=== PATIENT | female | born 2000 | race American Indian/Alaskan Native ===

== ENCOUNTER 2022-03-01 07:08 | Emergency (ER) | payer BC ==
[2022-03-01] MEDS ORDERED: charcoal activated SOLUTION 25 GM/120 ML PO ONE (08:34)
[2022-03-01] MEDS ORDERED: ONDANSETRON 4 MG/2 ML INJ IV ONE (08:35)
--- NOTE | 2022-03-01 08:52 | Emergency Department Report ---
HPI <EVONNE ZAVALA - Last Filed: 03/01/22 22:11> - [facility] HPI: Room 19 The patient is a 21-year-old female present with a chief complaint of suicidal ideation/overdose. Unfortunately the patient found out her brother was murdered earlier this morning. In her grief the patient overdosed on 10-20 ibuprofen 800 mg and consume alcohol in an attempt to kill her self. Patient denies any other ingestions. The patient is emotionally distraught but states she feels physically fine. <LUIS ALFREDO VARGAS - Last Filed: 03/02/22 11:32> - General Chief Complaint: Overdose Time Seen by Provider: 03/01/22 08:28 ED Past Medical Hx <EVONNE ZAVALA - Last Filed: 03/01/22 22:11> - Past Medical History Previous Medical History?: Yes Hx Psychiatric Treatment: Yes (Overdose, anxiety, depression) - Surgical History Past Surgical History?: No - Family History Family history: no significant - Social History Smoking Status: Never Smoker Substance Use Type: None <LUIS ALFREDO VARGAS - Last Filed: 03/02/22 11:32> - Medications Home Medications: Home Medications Medication Instructions Recorded Confirmed Last Taken Type Escitalopram Oxalate [Lexapro] 5 mg PO QDAY #30 03/02/22 Unknown Rx Trazodone HCl 50 mg PO QHS #30 03/02/22 Unknown Rx hydrOXYzine PAMOATE [Vistaril] 25 mg PO BID PRN #60 capsule 03/02/22 Unknown Rx ED Review of Systems ROS: Stated complaint: OVERDOSE IBUPROFEN 800 Other details as noted in HPI <EVONNE ZAVALA - Last Filed: 03/01/22 22:11> ROS: Stated complaint: OVERDOSE IBUPROFEN 800 Other details as noted in HPI Constitutional: no symptoms reported Eyes: denies: eye pain ENT: denies: throat pain Respiratory: no symptoms reported Cardiovascular: denies: chest pain Endocrine: no symptoms reported Gastrointestinal: denies: abdominal pain Genitourinary: denies: dysuria Musculoskeletal: denies: back pain Neurological: denies: headache Psychiatric: suicidal thoughts <LUIS ALFREDO VARGAS - Last Filed: 03/02/22 11:32> Physical Exam - Physical Exam Vital Signs: Vital Signs 03/01/22 03/01/2222 07:21 07:53 08:00 Temperature 97.6 F Pulse Rate 73 103 H 64 Respiratory 20 18 17 Rate Blood Pressure Blood Pressure 127/83 [Right] O2 Sat by Pulse 99 98 Oximetry 03/01/22 03/01/22 03/01/22 08:15 08:30 08:38 Temperature Pulse Rate 82 71 Respiratory 19 16 18 Rate Blood Pressure 121/64 121/64 Blood Pressure [Right] O2 Sat by Pulse 98 98 98 Oximetry 03/01/22 03/01/22 03/01/22 08:45 09:00 09:15 Temperature Pulse Rate 86 78 68 Respiratory 17 13 14 Rate Blood Pressure 113/56 108/61 121/59 Blood Pressure [Right] O2 Sat by Pulse 98 98 99 Oximetry 03/01/22 03/01/22 03/01/22 09:30 09:45 10:00 Temperature Pulse Rate 76 86 82 Respiratory 20 22 21 Rate Blood Pressure 116/53 117/63 120/44 Blood Pressure [Right] O2 Sat by Pulse 99 98 99 Oximetry 03/01/22 03/01/22 03/01/22 10:15 10:30 10:45 Temperature Pulse Rate 79 71 84 Respiratory 23 26 H 20 Rate Blood Pressure 126/54 106/38 116/52 Blood Pressure [Right] O2 Sat by Pulse 97 96 98 Oximetry 03/01/22 03/01/22 03/01/22 11:00 11:15 11:30 Temperature Pulse Rate 96 H 89 96 H Respiratory 22 17 19 Rate Blood Pressure 109/61 119/60 122/52 Blood Pressure [Right] O2 Sat by Pulse 97 100 98 Oximetry 03/01/22 03/01/22 03/01/22 11:46 12:00 12:16 Temperature Pulse Rate 87 109 H 78 Respiratory 18 21 22 Rate Blood Pressure 122/52 122/52 122/52 Blood Pressure [Right] O2 Sat by Pulse Oximetry 03/01/22 03/01/22 03/01/22 12:30 12:46 13:00 Temperature Pulse Rate 71 71 74 Respiratory 17 20 16 Rate Blood Pressure 122/52 122/52 122/52 Blood Pressure [Right] O2 Sat by Pulse Oximetry 03/01/22 03/01/22 03/01/22 13:16 13:30 13:46 Temperature Pulse Rate 76 82 68 Respiratory 21 17 15 Rate Blood Pressure 122/52 122/52 122/52 Blood Pressure [Right] O2 Sat by Pulse Oximetry 03/01/22 03/01/22 03/01/22 14:00 14:16 14:30 Temperature Pulse Rate 80 77 74 Respiratory 11 L 21 21 Rate Blood Pressure 122/52 122/52 116/55 Blood Pressure [Right] O2 Sat by Pulse 91 Oximetry 03/01/22 03/01/22 03/01/22 14:45 15:00 15:15 Temperature Pulse Rate 71 65 65 Respiratory 21 14 15 Rate Blood Pressure 105/51 120/61 119/58 Blood Pressure [Right] O2 Sat by Pulse 93 96 97 Oximetry 03/01/22 03/01/22 03/01/22 15:30 15:45 16:00 Temperature Pulse Rate 64 64 69 Respiratory 15 18 17 Rate Blood Pressure 116/50 115/57 122/61 Blood Pressure [Right] O2 Sat by Pulse 97 97 97 Oximetry 03/01/22 03/01/22 03/01/22 16:15 16:30 16:45 Temperature Pulse Rate 69 56 L 77 Respiratory 18 16 22 Rate Blood Pressure 133/58 115/66 125/61 Blood Pressure [Right] O2 Sat by Pulse 96 96 95 Oximetry 03/01/22 03/01/22 03/01/22 17:00 17:15 20:20 Temperature Pulse Rate 69 64 Respiratory 15 14 Rate Blood Pressure 123/68 125/65 Blood Pressure [Right] O2 Sat by Pulse 99 100 100 Oximetry <EVONNE ZAVALA - Last Filed: 03/01/22 22:11> - Physical Exam Vital Signs: Vital Signs 03/01/22 07:21 Temperature 97.6 F Pulse Rate 73 Respiratory 20 Rate Blood Pressure 127/83 [Right] O2 Sat by Pulse 99 Oximetry Physical Exam: GENERAL: The patient is well-developed well-nourished female lying on stretcher tearful. [] HEENT: Normocephalic. Atraumatic. Extraocular motions are intact. Patient has moist mucous membranes. NECK: Supple. Trachea midline CHEST/LUNGS: Clear to auscultation. There is no respiratory distress noted. HEART/CARDIOVASCULAR: Regular. There is no tachycardia. There is no gallop rub or murmur. ABDOMEN: Abdomen is soft, nontender. Patient has normal bowel sounds. There is no abdominal distention. SKIN: There is no rash. There is no edema. There is no diaphoresis. NEURO: The patient is awake, alert, and oriented. The patient is cooperative. The patient has no focal neurologic deficits. The patient has normal speech. GCS 15 MUSCULOSKELETAL: There is no evidence of acute injury. <LUIS ALFREDO VARGAS - Last Filed: 03/02/22 11:32> ED Course Vital Signs 03/01/22 03/01/22 03/01/22 07:21 07:53 08:00 Temperature 97.6 F Pulse Rate 73 103 H 64 Respiratory 20 18 17 Rate Blood Pressure Blood Pressure 127/83 [Right] O2 Sat by Pulse 99 98 Oximetry 03/01/22 03/01/22 03/01/22 08:15 08:30 08:38 Temperature Pulse Rate 82 71 Respiratory 19 16 18 Rate Blood Pressure 121/64 121/64 Blood Pressure [Right] O2 Sat by Pulse 98 98 98 Oximetry 03/01/22 03/01/22 03/01/22 08:45 09:00 09:15 Temperature Pulse Rate 86 78 68 Respiratory 17 13 14 Rate Blood Pressure 113/56 108/61 121/59 Blood Pressure [Right] O2 Sat by Pulse 98 98 99 Oximetry 03/01/22 03/01/22 03/01/22 09:30 09:45 10:00 Temperature Pulse Rate 76 86 82 Respiratory 20 22 21 Rate Blood Pressure 116/53 117/63 120/44 Blood Pressure [Right] O2 Sat by Pulse 99 98 99 Oximetry 03/01/22 03/01/22 03/01/22 10:15 10:30 10:45 Temperature Pulse Rate 79 71 84 Respiratory 23 26 H 20 Rate Blood Pressure 126/54 106/38 116/52 Blood Pressure [Right] O2 Sat by Pulse 97 96 98 Oximetry 03/01/22 03/01/22 03/01/22 11:00 11:15 11:30 Temperature Pulse Rate 96 H 89 96 H Respiratory 22 17 19 Rate Blood Pressure 109/61 119/60 122/52 Blood Pressure [Right] O2 Sat by Pulse 97 100 98 Oximetry 03/01/22 03/01/22 03/01/22 11:46 12:00 12:16 Temperature Pulse Rate 87 109 H 78 Respiratory 18 21 22 Rate Blood Pressure 122/52 122/52 122/52 Blood Pressure [Right] O2 Sat by Pulse Oximetry 03/01/22 03/01/22 03/01/22 12:30 12:46 13:00 Temperature Pulse Rate 71 71 74 Respiratory 17 20 16 Rate Blood Pressure 122/52 122/52 122/52 Blood Pressure [Right] O2 Sat by Pulse Oximetry 03/01/22 03/01/22 03/01/22 13:16 13:30 13:46 Temperature Pulse Rate 76 82 68 Respiratory 21 17 15 Rate Blood Pressure 122/52 122/52 122/52 Blood Pressure [Right] O2 Sat by Pulse Oximetry 03/01/22 03/01/22 03/01/22 14:00 14:16 14:30 Temperature Pulse Rate 80 77 74 Respiratory 11 L 21 21 Rate Blood Pressure 122/52 122/52 116/55 Blood Pressure [Right] O2 Sat by Pulse 91 Oximetry 03/01/22 03/01/22 03/01/22 14:45 15:00 15:15 Temperature Pulse Rate 71 65 65 Respiratory 21 14 15 Rate Blood Pressure 105/51 120/61 119/58 Blood Pressure [Right] O2 Sat by Pulse 93 96 97 Oximetry 03/01/22 03/01/22 03/01/22 15:30 15:45 16:00 Temperature Pulse Rate 64 64 69 Respiratory 15 18 17 Rate Blood Pressure 116/50 115/57 122/61 Blood Pressure [Right] O2 Sat by Pulse 97 97 97 Oximetry 03/01/22 03/01/22 03/01/22 16:15 16:30 16:45 Temperature Pulse Rate 69 56 L 77 Respiratory 18 16 22 Rate Blood Pressure 133/58 115/66 125/61 Blood Pressure [Right] O2 Sat by Pulse 96 96 95 Oximetry 03/01/22 03/01/22 03/01/22 17:00 17:15 20:20 Temperature Pulse Rate 69 64 Respiratory 15 14 Rate Blood Pressure 123/68 125/65 Blood Pressure [Right] O2 Sat by Pulse 99 100 100 Oximetry - Reevaluation(s) Reevaluation #1: 03/01/22 22:11 pt is medically cleared. Repeat labs are unremarkable, UA negative for infection, uds negative. Covid test ordered and pending collection. <EVONNE ZAVALA - Last Filed: 03/01/22 22:11> Vital Signs 03/01/22 07:21 Temperature 97.6 F Pulse Rate 73 Respiratory 20 Rate Blood Pressure 127/83 [Right] O2 Sat by Pulse 99 Oximetry - Consultations Consultation #1: 03/01/22 08:52 Poison control called 03/01/22 09:04 Case discussed with Robbin-recommends checking CK. Recommends rechecking acetaminophen and aspirin level 2 hours in. States the patient remains asy mptomatic after 6 hours of observation recommend repeating H&H, CMP and CK. Patient medically cleared for psych if she remains asymptomatic with normal values <LUIS ALFREDO VARGAS - Last Filed: 03/02/22 11:32> ED Medical Decision Making - Lab Data Result diagrams: 03/01/22 14:04 03/01/22 14:04 <EVONNE ZAVALA - Last Filed: 03/01/22 22:11> - Lab Data Result diagrams: 03/01/22 14:04 03/01/22 14:04 - Differential Diagnosis Suicidal ideation, grief reaction, intentional overdose <LIUS ALFREDO VARGAS - Last Filed: 03/02/22 11:32> Critical care attestation.: If time is entered above; I have spent that time in minutes in the direct care of this critically ill patient, excluding procedure time. <EVONNE ZAVALA - Last Filed: 03/01/22 22:11> Critical care attestation.: If time is entered above; I have spent that time in minutes in the direct care of this critically ill patient, excluding procedure time. <LUIS ALFREDO VARGAS - Last Filed: 03/02/22 11:32> ED Disposition <EVONNE ZAVALA - Last Filed: 03/01/22 22:11> Is pt being admited?: No Does the pt Need Aspirin: No <LUIS ALFREDO VARGAS - Last Filed: 03/02/22 11:32> Clinical Impression: Suicidal ideation, Grief reaction, Ibuprofen overdose Disposition: 01 HOME / SELF CARE / HOMELESS Condition: Stable Instructions: Persistent Depressive Disorder, Adult, Suicidal Feelings: How to Help Yourself Additional Instructions: OUTPATIENT MENTAL HEALTH RESOURCES [facility], [facility] Donna Wood MD: [address] [place] [address], [address] [place] [address] [place] [address] [facility]: [facility] [address] [place] [address] [place], [place] [id number] [phone] [facility]: [facility] Healthcare: [address] [facility] [address] [place] [address] [facility] [address] [facility]: Addy Borjas MD: [address] [facility] [address] [facility] [address] [facility]: [address] [facility] [place], [place] [address] [phone] [place] CRISIS AND ACCESS LINE: Professional and Agency Contacts To help Resolve Crises (08/02) [place] Crisis Line: Suicide Prevention Line: Crisis Text Line: Text START to 230916 Emergency: 911 Outpatient [facility] Behavioral Health Resources: [facility]: [facility] [address] [place], [place] [address] [facility] [address] [place] [address] Wednesday thru Wednesday - 8am - 5pm Call to schedule an assessment for mental health and substance abuse programs [facility]3] [facility] Address: [address] [place], [place] [address]Wednesday thru Wednesday- 7am-2pm [facility] Address: [address] [place], [place] [address]Wednesday thru Wednesday: 8:30AM-5PM Prescriptions: Escitalopram Oxalate [Lexapro] 5 mg PO QDAY #30 Trazodone HCl 50 mg PO QHS #30 hydrOXYzine PAMOATE [Vistaril] 25 mg PO BID PRN #60 capsule PRN Reason: Anxiety Referrals: VICTORINO HURST MD [Primary Care Provider] - 3-5 Days
[2022-03-01 09:28] LABS: BUN/Creatinine Ratio 13; Blood Urea Nitrogen 9 mg/dL (7-17); Hemolysis Index 7
--- NOTE | 2022-03-01 09:34 | Consultation ---
History of Present Illness - Reason for Consult Consult date: 03/01/22 Reason for consult: suicide attempt - History of Present Psychiatric Illness The patient was seen today. Her brother is at bedside. The patient gives me permission to speak in front of him. The patient appears sad. She says she took a handful of ibuprofen in an attempt to end her life after she got new that her younger brother was murdered this morning. The patient says she is very depressed. She still expresses feeling hopeless. She says "he was my biggest cheerleader." The patient states she has attempted suicide in the past. She shows me her arm where she cut herself. She says she suffers from depression and hasn't been on any meds. She says "I told them I don't want a pill to make me acevedo ppy." The patient denies hallucinations. She says "I hear my own voice, telling me I'm no good." She denies illicit drug use, out side of THC. She denies alcohol and nicotine. PAST PSYCHIATRIC HISTORY: Diagnoses: Depression Suicide attempts or Self-harm behavior: Yes Prior psychiatric hospitalizations: Yes Substance Abuse history: Denies Previous psychiatric medications tried: Denies Outpatient treatment: Denies PAST MEDICAL HISTORY: None reported Family Psychiatric History: None reported or documented SOCIAL HISTORY Marital Status: Single Living Arrangements: with dad Employment Status: Unemployed Access to guns/weapons: Denies Education: High school History of Abuse: Denies Legal History: Denies REVIEW OF SYSTEMS Constitutional: Negative for weight loss ENT: Negative for stridor Respiratory: Negative for cough or hemoptysis All other systems reviewed and are negative MENTAL STATUS General Appearance and Behavior: age appropriate, good eye contact, calm and cooperative Cooperation: Cooperative Psychomotor Behavior: within normal limits Mood: depressed, hopeless Affect and affective range: Congruent with stated mood, sad Thought Process: goal directed Thought Content: SI, hopelessness Speech: Normal tone and pace Suicidal Ideation: Yes Homicidal Ideation: Denies HI Hallucinations: Denies Delusions: None elicited Impulse Control: Poor Insight and Judgment: Limited Memory: Limited Attention: Attentive Orientation: alert and oriented Assessment Major Depressive Disorder Intentional Overdose Treatment Plan 1013 Start Lexapro 5mg po daily Start Vistaril 25mg po BID Start Trazdone 50mg po qhs Medical: per primary Disposition: recommend acute psychiatric treatment Will follow. Thanks Case staffed with Dr. Wilder Medications and Allergies Allergies Allergy/AdvReac Type Severity Reaction Status Date / Time No Known Allergies Allergy Unverified 03/01/22 07:18 Mental Status Exam - Vital signs Last Vital Signs Temp 97.6 F 03/01/22 07:21 Pulse 73 03/01/22 07:21 Resp 20 03/01/22 07:21 BP 127/83 03/01/22 07:21 Pulse Ox 99 03/01/22 07:21 Results Result Diagrams: 03/01/22 07:54 Abnormal lab results 03/01/22 Range/Units 07:54 Carbon Dioxide 20 L (22-30) mmol/L Glucose 134 H (65-100) mg/dL All other labs normal.
[2022-03-01] MEDS ORDERED: METOCLOPRAMIDE 10 MG/2 ML INJ IV ONE (10:35)
[2022-03-01] MEDS: hydrOXYzine PAMOATE 25 MG CAP PO SCH ×2 (10:58→22:12)
[2022-03-01 11:02] LABS: Basophils # (Auto) 0.1 K/mm3 (0.0-0.1); Basophils % (Auto) 0.5 % (0.0-1.8); Eosinophils # (Auto) 0.1 K/mm3 (0.0-0.4); Eosinophils % (Auto) 0.7 % (0.0-4.3); Hematocrit 37.2 % (30.3-42.9); Hemoglobin 12.5 gm/dl (10.1-14.3); Lymphocytes # (Auto) 3.1 K/mm3 (1.2-5.4); Lymphocytes % (Auto) 21.7 % (13.4-35.0); Mean Corpuscular HGB Conc 34 % (30-34); Mean Corpuscular Volume 75 fl (79-97); Monocytes # (Auto) 0.8 K/mm3 (0.0-0.8); Monocytes % (Auto) 5.8 % (0.0-7.3); Platelet Count 530 K/mm3 (140-440); Red Blood Count 4.97 M/mm3 (3.65-5.03); Red Cell Distribution Width 16.5 % (13.2-15.2)
[2022-03-01] MEDS: ESCITALOPRAM 10 MG TAB PO SCH (13:30)
[2022-03-01] MEDS ORDERED: FAMOTIDINE 20 MG/2 ML INJ IV ONE (13:42)
[2022-03-01] MEDS ORDERED: fentaNYL 100 MCG/2 ML INJ IV ONE (13:42)
[2022-03-01 13:57] LABS: Alanine Aminotransferase 22 units/L (7-56); Albumin 4.5 g/dL (3.9-5)
[2022-03-01 13:58] LABS: Bilirubin,Direct < 0.2 mg/dL (0-0.2)
[2022-03-01 14:54] LABS: Hematocrit 35.4 % (30.3-42.9); Hemoglobin 11.8 gm/dl (10.1-14.3)
[2022-03-01 15:10] LABS: Alanine Aminotransferase 20 units/L (7-56); Albumin 4.2 g/dL (3.9-5); BUN/Creatinine Ratio 9; Blood Urea Nitrogen 6 mg/dL (7-17); Hemolysis Index 2
[2022-03-01 20:27] LABS: Mucus,Urine FEW /HPF
[2022-03-01 20:36] LABS: Bilirubin,Urine Negative (Negative); Blood,Urine Negative (Negative); Color,Urine Yellow (Yellow); Urobilinogen,Urine < 2.0 mg/dL (<2.0)
[2022-03-01 20:40] LABS: Amphetamine Screen,Urine PRESUMPTIVE NEGATIVE; Benzodiazepines Screen,Urine PRESUMPTIVE NEGATIVE; Cannabinoid Screen,Urine PRESUMPTIVE NEGATIVE; Cocaine Screen,Urine PRESUMPTIVE NEGATIVE; Methadone Screen,Urine PRESUMPTIVE NEGATIVE; Opiate Screen,Urine PRESUMPTIVE NEGATIVE
[2022-03-01] MEDS ORDERED: traZODone 50 MG TAB PO SCH (22:00)
[2022-03-02] MEDS: hydrOXYzine PAMOATE 25 MG CAP PO SCH (09:59)
[2022-03-02] MEDS: ESCITALOPRAM 10 MG TAB PO SCH (09:59)
--- NOTE | 2022-03-02 10:20 | Progress Note ---
Subjective - Reason for Consult Consult date: 03/02/22 Reason for consult: SI - Chief Complaint Chief complaint: The patient was seen today. She is sad about the loss of her brother, but she's optimistic about getting through things. The patient is crying, and says "being in in the ER with theses types of people is making her worse." The patient says "I realize that it was a stupid mistake but I let my grief get the best of me. I miss my brother but I'm not going to hurt myself." The patient denies hallucinations of any kind. I discussed with the patient the benefit of medication, and seeking immediate assistance if she becomes suicidal again. She says "I will, but I promise this wont happen again." The patient asks me to call her parents. I call mom from bedside but did not get an answer. I later called dad and discussed with him the patient's progress and plan. Dad says he trusts his daughter, and doesn't believe she will do anything to harm herself. He says he plans to take the patient home with him and let her live with him. Discussed plan with dad the plan for continuity of the patient's mental wellness; compliance with meds, regular therapy and psychiatrist visits. Also informed dad that if SI/HI arise they are to seek immediate assistance. Dad expressed agreement and appreciation of plan. Will clear the patient and no longer recommend inpatient psych treatment. The patient is to discharge in dad's care. REVIEW OF SYSTEMS Constitutional: Negative for weight loss ENT: Negative for stridor Respiratory: Negative for cough or hemoptysis All other systems reviewed and are negative MENTAL STATUS General Appearance and Behavior: age appropriate, good eye contact, calm and cooperative Cooperation: Cooperative Psychomotor Behavior: within normal limits Mood: sad, but better Affect and affective range: Congruent with stated mood, Thought Process: goal directed Thought Content: optimistic Speech: Normal tone and pace Suicidal Ideation: Denies Homicidal Ideation: Denies Hallucinations: Denies Delusions: None elicited Impulse Control: Limited Insight and Judgment: Limited Memory: Limited Attention: Attentive Orientation: alert and oriented Assessment Major Depressive Disorder Intentional Overdose Treatment Plan d/c 1013 Lexapro 5mg po daily Vistaril 25mg po BID Trazdone 50mg po qhs Medical: per primary Disposition: Do not recommend acute psychiatric treatment. The patient and her father understand that if SI/HI are to arise the are to seek immediate a ssistance. The avionics mechanic to further discuss safety plan The avionics mechanic to give all necessary outpatient resources The patient to establish and follow up with outpatient psych in 7 to 14 days upon discharge Will sign off. Thanks Case staffed with Dr. Wilder Mental Status Exam - Vital signs Last Vital Signs Temp 97.6 F 03/01/22 07:21 Pulse 64 03/01/22 17:15 Resp 14 03/01/22 17:15 BP 125/65 03/01/22 17:15 Pulse Ox 100 03/02/22 05:15
[2022-03-02 11:03] VITALS: BP 118/79
== END 2022-03-02 12:27 | disposition home or self-care (01) ==
LOC: ED 07:08
DX: R45.851 Suicidal ideations (principal); F43.0 Acute stress reaction; T39.312A Poisoning by propionic acid derivatives, intentional self-harm, initial encounter; Y92.89 Other specified places as the place of occurrence of the external cause
CPT/HCPCS: 36415; 80048; 80053; 80076; 80307; 81001; 82550; 85014; 85018; 85025; 87086; 96374; 96375; 99284; J2405; J2765; J3010; J3490; 80320; G0480